=== PATIENT | male | born 1945 | race Caucasian/White ===

== ENCOUNTER 2024-08-17 07:59 | Day surgery (SDC) | payer MEDICARE ==
[2024-08-14 10:32] LABS: BASOPHILS % (AUTO) 0.9 % (0-1); EOSINOPHILS # (AUTO) 0.3 X10'3 (0-0.9); EOSINOPHILS % (AUTO) 6.2 % (0-6); LYMPHOCYTES # (AUTO) 1.3 X10'3 (1.1-4.8); LYMPHOCYTES % (AUTO) 24.8 % (21-51); MEAN CORPUSCULAR HEMOGLOBIN 33.4 PG (27.0-31.0); MEAN CORPUSCULAR HGB CONC 34.6 g/dL (33.0-36.5); MEAN CORPUSCULAR VOLUME 96.7 FL (78-98); MEAN PLATELET VOLUME 9.3 FL (7.4-10.4); MONOCYTES # (AUTO) 0.5 X10'3 (0-0.9); MONOCYTES % (AUTO) 9.8 % (2-12); NEUTROPHILS # (AUTO) 3.1 X10'3 (1.8-7.7); NEUTROPHILS % (AUTO) 58.3 % (42-75); PRE OP HEMATOCRIT 41.9 % (42.0-52.0); PRE OP HEMOGLOBIN 14.5 g/dL (14.0-17.9); PRE OP PLATELET COUNT 169 X10'3 (140-440); PRE OP WHITE BLOOD COUNT 5.2 10'3 (4.8-10.8); RED BLOOD COUNT 4.33 X10'6 (4.70-6.10); RED CELL DISTRIBUTION WIDTH 12.8 % (11.5-14.5)
[2024-08-14 10:39] LABS: ALBUMIN 3.6 G/DL (3.4-5.0); ALKALINE PHOSPHATASE 67 IU/L (46-116); BLOOD UREA NITROGEN 13 MG/DL (7-18); BUN/CREATININE RATIO 13.1 (10.0-20.0); CALCIUM 8.7 MG/DL (8.5-10.1); CHLORIDE 108 MMOL/L (99-107); CREATININE 0.99 MG/DL (0.60-1.10); PRE OP ALT 19 U/L (30-65); PRE OP ANION GAP 8 (8-16); PRE OP AST 17 U/L (10-37); PRE OP BILIRUB, TOTAL 0.5 MG/DL (0.0-1.0); PRE OP GLUCOSE 116 MG/DL (70-104); PRE OP POTASSIUM 4.2 MMOL/L (3.4-5.1); PRE OP SODIUM 144 MMOL/L (135-145); TOTAL CARBON DIOXIDE 28.3 MMOL/L (24-32); TOTAL PROTEIN 7.2 G/DL (6.4-8.2); eGFR 73 ML/MIN
[~2024-08-17] VITALS: Ht 182.9 cm; Wt 83.1 kg
[2024-08-17] VITALS (8 sets, daily range): BP systolic 105–135; BP diastolic 64–75; PULSE 66–101; RESP 11–20; TEMP 98.2; O2SAT 93–98
[2024-08-17] MEDS: ceFAZolin 2gm in dextrose, iso 50 ML IV ONE (05:30)
[~2024-08-17 07:59] MED LIST: BUPIVAcaine 2.5mg/ml inj 50ml vial (contains preservative) ONE; BUPIVAcaine HCl 0.25%/EPInephrine 1:200,000 inj. 10 ML VIAL ONE; CANNABIS TINCTURE; DULO30CA52 PO; FLO0.4C PO; LIDOcaine 1% (10mg/ml)w/preservative inj. 20ml MDV ONE; LIDOcaine 1% 30ml preserv. free vial ONE; MULT-1085 PO; PANT20TA18 PO; PRAV80TA3 PO
[2024-08-17] MEDS: famotidine 20mg tablet PO ONE (08:57)
[2024-08-17] MEDS: ringers solution, lacted 1,000 ML IV SCH (08:59)
[2024-08-17] MEDS ORDERED: sevoflurane 250ml liquid IH ONE (09:45)
[2024-08-17] MEDS ORDERED: midazolam 1 mg/ML 2ml injection ONE (09:53)
[2024-08-17] MEDS ORDERED: propofol inj 20 ML IV ONE (10:01)
[2024-08-17] MEDS ORDERED: LIDOcaine 2% (20mg/ml) 5ml vial ONE (10:01)
[2024-08-17] MEDS ORDERED: dexamethasone sod phosphate 4mg/ml inj. ONE (10:01)
[2024-08-17] MEDS ORDERED: ondansetron/PF 4mg/2ml inj ONE (10:01)
[2024-08-17] MEDS ORDERED: fentaNYL /PF 50mcg/ml 5ml ampule ONE (10:01)
[2024-08-17] MEDS ORDERED: ePHEDrine 50MG/ML INJ. ONE (10:06)
[2024-08-17] MEDS ORDERED: phenylephrine 10mg/ml inj. ONE (10:21)
[2024-08-17] MEDS ORDERED: 0.9 % SODIUM CHLORIDE 10 ML VIAL ONE (10:21)
[2024-08-17] MEDS ORDERED: morphine 4 MG/ML inj SYRINge IV PRN (10:55)
[2024-08-17] MEDS ORDERED: ringers solution, lacted 1,000 ML IV SCH (10:55)
[2024-08-17] MEDS ORDERED: hydrALAZINE 20mg/ml inj. IV PRN (10:55)
[2024-08-17] MEDS ORDERED: morphine 2 MG/ML inj. syringe IV PRN (10:55)
[2024-08-17] MEDS ORDERED: proCHLORperazine 10 MG/2 ml inj IV PRN (10:55)
[2024-08-17] MEDS ORDERED: acetaminophen 1,000mg/100ml IV 100 ML IV ONE (10:55)
[2024-08-17] MEDS ORDERED: HYDROmorphone/PF 0.2 MG/ML SYRINGE IV PRN ×2 (10:55)
[2024-08-17] MEDS ORDERED: ondansetron/PF 4mg/2ml inj IV PRN (10:55)
[2024-08-17] MEDS ORDERED: labetalol 20mg/4ml (5mg/ml) syringe IV PRN (10:55)
[2024-08-17] MEDS: meperidine/PF 25mg/ml syringe IV PRN (11:16)
== END 2024-08-17 12:00 | disposition home or self-care (01) ==
LOC: PAS 07:59
PROVIDERS: ATTEND Surgery
DX: N63.42 Unspecified lump in left breast, subareolar (principal); I45.2 Bifascicular block
CPT/HCPCS: 19300; 36415; 80053; 82948; 85025; 93005; A4215; A4618; A6402; A7000; J0690; J1100; J2003; J2175; J2250; J2371; J2405; J2704; J3010; J3490; J7030; J7120; Z7506; Z7508; Z7512; Z7610; A6449; J2370